=== PATIENT | male | born 1980 | race American Indian/Alaskan Native ===

== ENCOUNTER 2017-08-26 10:25 | Emergency (ER) | payer OTHER, MEDICAID ==
[2017-08-26 10:52] VITALS: RESP 18; TEMP 98; O2SAT 98
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
[2017-08-26 12:17] VITALS: BP 105/53; PULSE 80
== END 2017-08-26 12:41 | disposition home or self-care (01) ==
LOC: ED 10:25
DX: M79.1 Myalgia (principal)